=== PATIENT | male | born 1965 ===

== ENCOUNTER → 2022-11-19 | Outpatient (CLI) | payer BC ==
--- NOTE | 2022-11-20 10:28 | CA ---
Transthoracic Echo Report Name: Osito Dash Age: 57 Gender: M : 1965 Exam Date: 11/19/2022 12:38 Exam Location: [place] [facility] Ht (in): 73 Wt (lb): 250 Ordering Physician: Nir Jaramillo DO Attending/Referring Phys: Perl Software Engineer Tracy Berman [facility] Procedure CPT: Indications: I51.7 Cardiomegaly Cardiac Hx: Technical Quality: Fair Contrast 1: Total Dose (mL): Contrast 2: Total Dose (mL): MEASUREMENTS (Male / Female) Normal Values 2D ECHO LV Diastolic Diameter PLAX 5.8 cm 4.2 - 5.9 / 3.9 - 5.3 cm LV Systolic Diameter PLAX 3.9 cm IVS Diastolic Thickness 0.9 cm 0.6 - 1.0 / 0.6 - 0.9 cm LVPW Diastolic Thickness 1.1 cm 0.6 - 1.0 / 0.6 - 0.9 cm LV Relative Wall Thickness 0.3 LVOT Diameter 2.0 cm Ascending Aorta Diameter 3.6 cm M-MODE Aortic Root Diameter MM 3.0 cm LA Systolic Diameter MM 4.5 cm LA Ao Ratio MM 1.5 AV Cusp Separation MM 2.0 cm DOPPLER AV Peak Velocity 149.3 cm/s AV Peak Gradient 8.9 mmHg AV Mean Velocity 115.4 cm/s AV Mean Gradient 5.8 mmHg AV Velocity Time Integral 25.2 cm LVOT Peak Velocity 118.4 cm/s LVOT Peak Gradient 5.6 mmHg LVOT Velocity Time Integral 25.6 cm LVOT Stroke Volume 78.3 cm??? LVOT Stroke Volume Index 33.1 ml/m??? LVOT Cardiac Index 2718.3 cm???/min???m??? AV Area Cont Eq vti 3.1 cm??? AV Area Cont Eq pk 2.4 cm??? Mitral E Point Velocity 54.0 cm/s Mitral A Point Velocity 68.1 cm/s Mitral E to A Ratio 0.8 MV Deceleration Time 211.4 ms LV E' Lateral Velocity 10.5 cm/s Mitral E to LV E' Lateral Ratio 5.1 LV E' Septal Velocity 8.4 cm/s Mitral E to LV E' Septal Ratio 6.4 Right Atrial Pressure 3.0 mmHg FINDINGS Left Ventricle Normal Left ventricular wall thickness, systolic function with no obvious regional wall motion abnormalities. Mild left ventricular dilatation. Left ventricular ejection fraction is estimated at 55-60%. Right Ventricle Moderate right ventricular dilatation. Right Atrium Moderate right atrial dilatation. Left Atrium Normal left atrial size. Mitral Valve Structurally normal mitral valve. No mitral stenosis, regurgitation or prolapse. Aortic Valve Trileaflet aortic valve. No aortic valve stenosis or regurgitation. Tricuspid Valve Structurally normal tricuspid valve. No tricuspid regurgitation. Pulmonic Valve Structurally normal pulmonic valve. No pulmonic regurgitation. Pericardium No pericardial effusion. Aorta Normal size aortic root and proximal ascending aorta. CONCLUSIONS Normal LV systolic function Dilated right ventricle Previewed by: Dr. Aniceto Fletcher MD (Electronically Signed) Final Date: 20 November 2022 10:27
== END | disposition home or self-care (01) ==
LOC: RADECHMAIN 12:29
PROVIDERS: ATTEND Family Medicine
DX: I51.7 Cardiomegaly (principal)
CPT/HCPCS: 93306

== ENCOUNTER → 2023-03-22 | Outpatient (CLI) | payer BC ==
--- NOTE | 2023-03-22 11:48 | CT ---
EXAMINATION TYPE: CT brain wo con DATE OF EXAM: 03/22/2023 COMPARISON: None HISTORY: headaches X [address] DLP: 1133.3 mGycm Automated exposure control for dose reduction was used. FINDINGS: Ventricular system is midline. No evidence of displacement. Orbits are symmetric. Craniocervical junc tion maintained. Sella turcica normal. There is no acute hemorrhage or mass effect. No midline shift. Mild generalized degenerative change. Faint hypoattenuation in the white matter compatible with remote microvascular ischemia. IMPRESSION: MILD DEGENERATIVE CHANGE WITH NO EVIDENCE OF ACUTE HEMORRHAGE OR MASS EFFECT. IF SYMPTOMS PERSIST CON HAND HEEL SEAT FITTER MRI.
== END | disposition home or self-care (01) ==
LOC: RADCTMAIN 09:51
PROVIDERS: ATTEND Family Medicine
DX: G31.89 Other specified degenerative diseases of nervous system (principal); R51.9 Headache, unspecified
CPT/HCPCS: 70450